=== PATIENT | male | born 1960 | race Caucasian/White ===

== ENCOUNTER → 2019-04-09 | Outpatient (CLI) | payer OTHER ==
[~2019-04-09] MED LIST: REGADENOSON 0.4 MG/5 ML DISP.SYRIN. IV ONE
--- NOTE | 2019-04-09 10:16 | PCVCIMAG ---
APPROVED REPORT Study performed: 04/09/2019 08:25:00 EXAM: Comprehensive 2D, Doppler, and color-flow Echocardiogram Patient Location: Echo lab Room #: 2Status: routine BSA: 2.18 HR: 74 bpmBP: 140/84 mmHg Rhythm: NSR Other Information Study Quality: Adequate Risk Factors: Cardiac Risk Factors: Hyperlipidemia Indications Murmur Palpitations Chest Pain 2D Dimensions IVSd: 9.70 (7-11mm)LVOT Diam: 19.80 (18-24mm) LVDd: 40.07 mm PWd: 9.18 (7-11mm)Ascending Ao: 34.37 (22-36mm) LVDs: 23.24 (25-40mm) Left Atrium: 35.03 (27-40mm) Aortic Root: 28.02 mm LV Single Plane 4CH: 53.86 % LV Single Plane 2CH: 61.28 % Biplane EF: 58.4 % Volumes Left Atrial Volume (Systole) Single Plane 4CH: 43.29 mLSingle Plane 2CH: 65.33 mL Biplane LA Volume: 55.00 mLLA ESV Index: 25.00 mL/m2 Aortic Valve AoV Peak Derrick.: 1.36 m/s AO Peak Gr.: 7.38 mmHgLVOT Max P.44 mmHg LVOT Max V: 0.93 m/s DICKSON Vmax: 2.10 cm2 Mitral Valve E/A Ratio: 1.1 MV Decel. Time: 121.65 ms MV E Max Derrick.: 0.71 m/s MV A Derrick.: 0.62 m/s IVRT: 96.89 ms TDI E/Lateral E': 5.46E/Medial E': 7.89 Medial E' Derrick.: 0.09 m/s Lateral E' Derrick.: 0.13 m/s Pulmonary Valve PV Peak Derrick.: 0.90 m/sPV Peak Gr.: 3.21 mmHg Pulmonary Vein P Vein S: 0.88 m/sP Vein A: 0.46 m/s P Vein D: 0.44 m/sP Vein A Dur.: 93.4 msec P Vein S/D Ratio: 2.00 Tricuspid Valve TR Peak Derrick.: 1.06 m/s TR Peak Gr.: 4.46 mmHg TV Vmax: 0.72 m/sPA Pressure: 12.00 mmHg Left Ventricle The left ventricle is normal size. There is normal LV segmental wall motion. There is normal left ventricular wall thickness. Left ventricular systolic function is normal. The left ventricular ejection fraction is within the normal range. LVEF is 55-60%. The left ventricular diastolic function is normal. Right Ventricle The right ventricle is normal size. The right ventricular systolic function is normal. Atria The left atrium size is normal. The right atrium size is normal. Aortic Valve Aortic valve is trileaflet. The aortic valve is normal in structure and function. No aortic regurgitation is present. There is no aortic valvular stenosis. Mitral Valve The mitral valve is normal in structure. There is no mitral valve regurgitation noted. No evidence of mitral valve stenosis. Tricuspid Valve The tricuspid valve is normal in structure. There is no tricuspid valve regurgitation noted. Pulmonic Valve The pulmonary valve is normal in structure. There is no pulmonic valvular regurgitation. Great Vessels The aortic root is normal in size. The ascending aorta is normal in size. Aortic arch is normal in caliber. IVC is normal in size and collapses >50% with inspiration. Pericardium There is no pericardial effusion. There is no pleural effusion. <Conclusion> The left ventricle is normal size. LVEF is 55-60%. Aortic valve is trileaflet. The aortic valve is normal in structure and function. The mitral valve is normal in structure. The tricuspid valve is normal in structure. The pulmonary valve is normal in structure. There is no pericardial effusion.
--- NOTE | 2019-04-10 11:56 | PCVCIMAG ---
APPROVED REPORT Imaging Protocol: Rest Tc-99m/Stress Tc-99m 1 day Study performed: 04/09/2019 09:08:52 Indication: Palpitations , Chest pain Patient Location: Out-Patient Stress Nurse: Rachel Bay RN, Leatha Hammond RN CO Tech:Liseth Chopra [facility] Ht: 6 ft 0 in Wt: 210 lbs BSA: 2.18 m2 HR: 87 bpm BP: 147/78 mmHg BMI: 28.47 Rhythm: Normal Sinus Rhythm, nonspecific ST-T abnormalities Medical History Medical History: Hyperlipidemia, HTN, Current Smoker Medications: Amlodipine, ASA, Lisinopril Allergies: No known drug allergies Cardiac Risk Factors: Age Pretest Chest Pain Characteristics: No chest pain Exercise History: Indeterminate Physical Disabilities: Spinal Cerebellar Ataxia Resting Data Rest SPECT myocardial perfusion imaging was performed in supine position 45 minutes following the intravenous injection of 10.5 mCi of Tc-99m Sestamibi. Time of rest injection: 0900 Date: 04/09/2019 Administration Route: IV Administration Site: Right AC Pharmacologic Stress Pharmacologic stress test was performed by injecting Regadenoson 0.4 mg IV push over 10-15 seconds immediately followed by the intravenous injection of 35.6 mCi of Tc-99m Sestamibi. Time of stress injection: 1030 Date: 04/09/2019 Administration Route: IV Administration Site: Right AC Gated Stress SPECT was performed 45 minutes after stress injection. The images were gated to evaluate regional wall motion and calculate left ventricular ejection fraction. Stress Test Details Stress Test: Pharmacologic stress was paired with low level exercise. Reason for pharmacologic stress test: physical limitation, Spinal Cerebellar Ataxia. HRMax Heart Rate (APMHR): 159 bpm Resting HR: 87 bpmTarget HR (85% APMHR): 135 bpm Max HR Achieved: 126 bpm % of APMHR: 79 Recovery HR: 85 bpm BP Resting BP: 147/78 mmHg Max BP: 160/76 mmHg Recovery BP: 133/67 mmHg ECG Resting ECG: Normal Sinus Rhythm, nonspecific ST-T abnormalities Stress ECG: Sinus Tachycardia, nonspecific ST-T abnormalities Arrhythmia: None Recovery ECG: Sinus Rhythm, nonspecific ST-T abnormalities Clinical Reason for Termination: Completed protocol Stress Symptoms: Lightheaded, Dyspnea, , Fatigue Exercise duration: 4 min 00 sec Symptoms resolved during recovery. Stress ECG Conclusion 1. Adequate response to intravenous Lexiscan 2. Inadequate heart rate for ECG diagnosis Study Data Post stress, the left ventricular ejection was 72%.. SSS: 0 SRS: 0 SDS: 0 TID = 1.00. Perfusion There is a large area of moderately reduced uptake in the entire segment of the inferior wall which is seen on the stress images as well as the resting images. This area thickens and moves normally and is most consistent with attenuation artifact. Nuclear Conclusion ECG Findings: non-diagnostic Clinical Findings: negative for ischemia Nuclear Findings: negative for ischemia Exercise Capacity: not assessed Left Ventricular Function: normal 1. Low risk study 2. Post exercise left ventricular ejection fraction of 72% without wall motion abnormalities <Conclusion> 1. Adequate response to intravenous Lexiscan 2. Inadequate heart rate for ECG diagnosis
== END | disposition home or self-care (01) ==
LOC: PCVCIMAG 08:28
PROVIDERS: ATTEND Internal Medicine
DX: R07.9 Chest pain, unspecified (principal); R01.1 Cardiac murmur, unspecified; R00.2 Palpitations; E78.5 Hyperlipidemia, unspecified; F17.200 Nicotine dependence, unspecified, uncomplicated
CPT/HCPCS: 78452; 93017; 93306; A9500; J2785